=== PATIENT | female | born 1960 | race Two or more races ===

== ENCOUNTER 2019-06-04 08:13 | Day surgery (SDC) | payer OTHER ==
[~2019-06-04 08:13] MED LIST: ENALAPRIL MALEA20 MG; GLUMETZA1000 MG PO; SYNTHROID200 MCG
[2019-06-04] MEDS ORDERED: IBU600 MG PO (11:08)
== END 2019-06-04 13:35 | disposition home or self-care (01) ==
LOC: CIR.AMB 08:13
DX: N84.0 Polyp of corpus uteri (principal)

== ENCOUNTER 2021-04-12 10:58 | Emergency (ER) | payer OTHER ==
[~2021-04-12] VITALS: Ht 152.4 cm; Wt 74.8 kg
[~2021-04-12 10:58] MED LIST changes: +IBU600 MG PO
[2021-04-12] MEDS ORDERED: FENOFIBRATE145 MG PO (12:11)
== END 2021-04-12 16:47 | disposition home or self-care (01) ==
LOC: ER 10:58
DX: J40 Bronchitis, not specified as acute or chronic (principal); Z03.818 Encounter for observation for suspected exposure to other biological agents ruled out